=== PATIENT | male | born 1990 | race Caucasian/White ===

== ENCOUNTER 2017-08-25 02:00 | Emergency (ER) | payer OTHER ==
[~2017-08-25] VITALS: Ht 180.3 cm; Wt 92.5 kg
[2017-08-25] MEDS ORDERED: ULTRAM 50MG TAB50 MG PO (03:36)
[2017-08-25] MEDS ORDERED: IBUPROFEN 800800 MG PO (03:36)
[2017-08-25 04:03] VITALS: BP 128/68
== END 2017-08-25 04:05 | disposition home or self-care (01) ==
LOC: M.ERS 02:00
DX: S40.011A Contusion of right shoulder, initial encounter (principal); S93.401A Sprain of unspecified ligament of right ankle, initial encounter; V28.0XXA Motorcycle driver injured in noncollision transport accident in nontraffic accident, initial encounter; Y93.89 Activity, other specified; Y92.89 Other specified places as the place of occurrence of the external cause; Y99.8 Other external cause status